=== PATIENT | female | born 1990 | race Caucasian/White ===

== ENCOUNTER 2021-12-26 10:47 | Emergency (ER) | payer OTHER, BC ==
--- NOTE | 2021-12-26 11:04 | ED Physician Documentation ---
History of Present Illness - Stated complaint Stated Complaint: RT SHOULDER INJ - Chief complaint Chief Complaint: Ext Problem - History obtained from History obtained from: Patient - History of Present Illness Timing: Yesterday Pain level max: 4 Pain level now: 4 - Additonal information Additional information: Patient is a 31-year-old female who presents to the emergency department after a fall at home yesterday while she was packing her car to go on vacation. She states that she tripped and fell on the stairs injuring her right hand and right shoulder. Has continued pain today so came in for evaluation. No head, neck, back pain. No fevers. No chills. No numbness or tingling. Denies any possibility of . No loss of consciousness. No head injury. Review of Systems Constitutional: denies: Fever, Chills GI: denies: Nausea, Vomiting, Diarrhea : denies: Now EGA Skin: denies: Rash Musculoskeletal: denies: Neck pain, Back pain Neurologic: denies: Headache, Head injury PD PAST MEDICAL HISTORY - Past Medical History Past Medical History: No - Past Surgical History Past Surgical History: No - Present Medications Home Medications: Ambulatory Orders Medication Instructions Recorded Confirmed PARoxetine HCl [Paxil] 12/26/21 - Allergies Allergies/Adverse Reactions: Allergies Allergy/AdvReac Type Severity Reaction Status Date / Time lamotrigine [From Lamictal] Allergy Unknown Verified 12/26/21 10:57 Penicillins Allergy Rash Verified 12/26/21 10:57 PD ED PE NORMAL - Vitals Vital signs reviewed: Yes - General General: Alert and oriented X 3, No acute distress - HEENT HEENT: Atraumatic, PERRL, Moist mucous membranes - Neck Neck: Supple, no meningeal sign, No bony TTP, C-Spine cleared by NEXUS criteria - Cardiac Cardiac: RRR - Respiratory Respiratory: No respiratory distress, Clear bilaterally - Derm Derm: Warm and dry - Extremities Extremities: Other (Small abrasion to the right hand, near the fifth metacarpal. Mild tenderness. No swelling or bruising. Neurovascular intact.) - Neuro Neuro: Alert and oriented X 3 - Psych Psych: Normal mood, Normal affect - Free text exam Free text exam: Right shoulder full range of motion, pain with internal rotation over the anterior aspect of the glenohumeral joint. Pain with abduction, especially above 90 degrees. Neurovascularly intact. No deformity. Results - Vitals Vitals: Vital Signs - 24 hr 12/26/21 12/26/21 10:49 12:12 Temperature 36.6 C 36.6 C Heart Rate 69 71 Respiratory 16 Rate Blood Pressure 125/79 128/66 O2 Saturation 99 99 Oxygen O2 Source Room air - Rads (name of study) Right shoulder x-ray Radiology: Final report received, EMP read contemporaneously, See rad report Right hand x-ray Radiology: Final report received, EMP read contemporaneously, See rad report PD MEDICAL DECISION MAKING - ED course Complexity details: reviewed results, re-evaluated patient, considered differential, d/w patient ED course: No acute findings on x-ray of the hand or shoulder. Likely sprain. Possible rotator cuff injury. Declines pain medication here or for home. Encouraged gentle stretching of the shoulder including wall walks. Neurovascular intact including the axillary nerve. We will have her follow-up with her doctor for further care. Patient counseled regarding signs and symptoms for which Reji valenzuela and urgent re-evaluation would be necessary. Patient with good understanding of and agreement to plan and is comfortable going home at this time This document was made in part using voice recognition software. While efforts are made to proofread this document, sound alike and grammatical errors may occur. Departure - Departure Disposition: 01 Home, Self Care Clinical Impression: Right shoulder strain Qualifiers: Encounter type: initial encounter Qualified Code(s): S46.911A - Strain of unspecified muscle, fascia and tendon at shoulder and upper arm level, right arm, initial encounter Sprain of right hand Qualifiers: Encounter type: initial encounter Qualified Code(s): S63.91XA - Sprain of unspecified part of right wrist and hand, initial encounter Condition: Good Instructions: ED Contusion Hand, ED Sprain Shoulder Follow-Up: Provider,Other [Primary Care Provider] - Comments: Your x-rays do not show any acute abnormalities today. Please follow-up with your doctor as needed for further care. You may have a rotator cuff injury, please continue to gently stretch the shoulder as I showed you today. You can use Motrin or Tylenol as needed for pain. Return if you worsen. Discharge Date/Time: 12/26/21 12:12
--- NOTE | 2021-12-26 11:58 | XRAY Report ---
PROCEDURE: Hand 3 View RT INDICATIONS: fall, R hand pain TECHNIQUE: 3 views of the hand(s) acquired. COMPARISON: None FINDINGS: Bones: No fractures or dislocations. No suspicious bony lesions. Soft tissues: No suspicious soft tissue calcifications. IMPRESSION: Normal right hand Reviewed by: Mauricio Duron on 12/26/2021 10:57 AM PATRICK Approved by: Mauricio Duron on 12/26/2021 10:57 AM PATRICK Station ID: [id number]
--- NOTE | 2021-12-26 11:59 | XRAY Report ---
PROCEDURE: Shoulder 3 View RT INDICATIONS: fall, R shoulder pain TECHNIQUE: Views of the location were acquired. COMPARISON: None. FINDINGS: Bones: No fractures or dislocations. No suspicious bony lesions. Soft tissues: No suspicious soft tissue calcifications. IMPRESSION: Normal right shoulder Reviewed by: Mauricio Duron on 12/26/2021 10:58 AM PATRICK Approved by: Mauricio Duron on 12/26/2021 10:58 AM PATRICK Station ID: [id number]
[2021-12-26 12:13] VITALS: BP 128/66
== END 2021-12-26 12:12 | disposition home or self-care (01) ==
LOC: ED 10:47
DX: S46.911A Strain of unspecified muscle, fascia and tendon at shoulder and upper arm level, right arm, initial encounter (principal); S63.91XA Sprain of unspecified part of right wrist and hand, initial encounter; W10.9XXA Fall (on) (from) unspecified stairs and steps, initial encounter
CPT/HCPCS: 99282; 99284